=== PATIENT | male | born 1995 | race Caucasian/White ===

== ENCOUNTER 2020-03-15 10:39 | Day surgery (SDC) | payer BC ==
[2020-03-15 11:46] LABS: Hemoglobin 14.5 g/dL (14.0-18.0); Mean Corpuscular HGB CONC 33.1 g/dL (32.0-36.0); Mean Corpuscular Hemoglobin 30.9 pg (27.0-31.0); Mean Corpuscular Volume 93.6 fL (78.0-98.0); Mean Platelet Volume 6.4 fL (7.4-10.4); Platelet Count 285 thou/uL (130-400); RBC Distribution Width 12.5 % (11.5-14.5); Red Blood Cell (RBC) Count 4.68 mill/uL (4.70-6.10); White Blood Cell (WBC) Count 12.4 thou/uL (4.8-10.8)
[2020-03-15] MEDS ORDERED: Bacitracin Zinc Ointment 30 gm TUBE ONE (13:15)
[2020-03-15] MEDS ORDERED: Bupivacaine PF 0.5% 30 ML VIAL ONE (13:15)
[2020-03-15] MEDS ORDERED: Midazolam HCl 2 mg/2 ml Vial ONE (13:17)
[2020-03-15] MEDS ORDERED: Fentanyl 250 MCG/5 ML VIAL ONE (13:24)
[2020-03-15] MEDS ORDERED: Fentanyl 100 MCG/2 ML VIAL ONE ×3 (13:24→16:32)
[2020-03-15] MEDS ORDERED: PROPOFOL 200 MG/20 ML VIAL ONE (13:58)
[2020-03-15] MEDS ORDERED: Succinylcholine Chloride 20 MG/ML 10 ml SYRINGE FS ONE (13:58)
[2020-03-15] MEDS ORDERED: Dexamethasone 20 MG/5 ML VIAL ONE (13:58)
[2020-03-15] MEDS ORDERED: Ketorolac Tromethamine 30 MG/ML VIAL ONE ×2 (13:58→16:16)
[2020-03-15] MEDS ORDERED: diphenhydrAMINE 50 MG/ML VIAL ONE (13:58)
[2020-03-15] MEDS ORDERED: Ondansetron PF 4 MG/2 ML Vial ONE (13:58)
--- NOTE | 2020-03-15 16:16 | RAD ---
RIGHT HAND RADIOGRAPHS THREE VIEWS: 03/15/20 PROVIDED CLINICAL HISTORY: Multiple spot fluoroscopic images of the ulnar aspect of the right hand demonstrate ORIF of fifth met acarpal fracture. IMPRESSION: As above. POS: SIMRAN
[2020-03-15] MEDS ORDERED: HYDROcodone/Acetaminophen 5/325 mg Tablet ONE (17:18)
--- NOTE | 2020-03-15 19:12 | OP ---
DATE OF PROCEDURE: 03/15/2020 PREOPERATIVE DIAGNOSES: Right small finger metacarpal fracture, small finger metacarpal fracture, rotational malunion. POSTOPERATIVE DIAGNOSES AND FINDINGS: Rotational malunion with the fracture completely healed, a 3-part fracture in 2 planes. PROCEDURES PERFORMED: 1. Osteotomy, healing metacarpal fracture malunion in order to achieve rotational conversion to open reduction internal fixation of right small finger metacarpal malunion at the base of proximal third mid shaft junction. 2. Bone graft 1 mL Synthes putty. 3. C-arm. TOURNIQUET TIME: Sixty-seven minutes. ESTIMATED BLOOD LOSS: 10 mL. INJECTABLES: 20 mL of 0.5% Marcaine superficial ulnar block and gael-incisional block. INDICATIONS: Patient presented to the clinic one day with what he said was a 3- to 4-week old fracture where he had blocked a blow by his own admission. 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 It actually measured 25 degrees when he was asleep today. DESCRIPTION OF PROCEDURE: After successful general endotracheal anesthesia, the limb was prepped and draped. C-arm brought into the field to discern the fractured site. We marked the appropriate approach, centered on the fracture site, primary fracture line in the frontal plane and primarily long sagittal plane fracture line. We then were able to give him a block as described above, exsanguinated the arm, inflated tourniquet to 250 mmHg pressure. We then were able to establish the fracture line, I used with the help of C-arm after making an incision and split in the extensor tendons and elevated the periosteum with a [place] blade. I used the [place] blade to restore the fracture line, but we noticed there was marked amount of callus and comminution. So once we debrided the fracture line, there was not a perfect fit of the fragments. The rotation of correction was otherwise performed with frontal plane, 80% sagittal plane, 70% bony contact of the fracture fragments. We filled in the rest of the gap with the synthetic bone graft, reduced it, and then held it with 2 K-wires. We then placed two 1.5 screws in lag position and they gave excellent stability and we maintained a slightly overcorrected proximal by neutral rotation of the small finger to the ring finger. We then cut the wires deep against the bone, deflated tourniquet, the bone graft putty any spots that were not filled, took final radiographs which show anatomic frontal and approximately 3 mm proximally. This shortened distal fragment in the sagittal plane and there was no evidence of hardware loss or rotational change. We closed subcutaneous with a running 4-0 Monocryl, the epidermis with an interrupted 4-0 nylon in a simple pattern and a bulky dressing with a splint, all that was out to the level of the MP joint of the small finger and ring finger, with the PIP joints free for motion. Job ID: [id number]
== END 2020-03-15 18:00 | disposition home or self-care (01) ==
LOC: SDC 10:39
PROVIDERS: ATTEND Orthopaedic Surgery Hand Surgery
PROC: 0PSP04Z Reposition Right Metacarpal with Internal Fixation Device, Open Approach (ICD-10-PCS; principal; 2020-03-15)
PROC: 0PU Upper Bones, Supplement (ICD-10-PCS; principal; 2020-03-15)
DX: S62.326A Displaced fracture of shaft of fifth metacarpal bone, right hand, initial encounter for closed fracture (principal); F32.9 Major depressive disorder, single episode, unspecified; Z79.899 Other long term (current) drug therapy; W50.0XXA Accidental hit or strike by another person, initial encounter
CPT/HCPCS: 36415; 76000; 85027; C1713; J0690; J1100; J1200; J1885; J2250; J2405; J2704; J3010; J3370; S0020